=== PATIENT | male | born 1985 | race Caucasian/White ===

== ENCOUNTER 2018-12-05 16:13 | Emergency (ER) | payer SELFPAY ==
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
[2018-12-05 18:31] VITALS: BP 130/76
== END 2018-12-05 18:31 | disposition home or self-care (01) ==
LOC: ED 16:13
DX: S20.20XA Contusion of thorax, unspecified, initial encounter (principal); M54.2 Cervicalgia; V49.40XA Driver injured in collision with unspecified motor vehicles in traffic accident, initial encounter; Y92.410 Unspecified street and highway as the place of occurrence of the external cause; Z88.0 Allergy status to penicillin
CPT/HCPCS: 72050; 99281

== ENCOUNTER 2019-04-15 21:25 | Emergency (ER) | payer BC, OTHER ==
--- NOTE | 2019-04-15 21:28 | UC ---
Respiratory Complaint HPI - HPI Summary HPI Summary: 33 yo male presents with flu-like symptoms. He tells me that on 04/10 he developed fatigue, body aches, loose stools, and decreased appetite. Had loose stools 3/ and 04/12, but since resolved. Fatigue, body aches, and decreased appetite have persisted. He did not get a flu shot this year. Has not been taking anything OTC for his symptoms. He is most concerned because he has a one year old and a three year old at home and the 3 year old has started to show similar symptoms as his. He also has a mild sore throat and dry cough. Denies fever, SOB, chest pain, abdominal pain, vomiting, dysuria. Also notes a small circular itchy rash to his right calf that has been present for a few months. - History of Current Complaint Stated Complaint: URI Time Seen by Provider: 04/15/19 21:28 Hx Obtained From: Patient Onset/Duration: Sudden Onset Severity Initially: Mild Severity Currently: Mild Pain Intensity: 3 Pain Scale Used: 0-10 Numeric - Allergies/Home Medications Allergies/Adverse Reactions: Allergies Allergy/AdvReac Type Severity Reaction Status Date / Time Penicillins Allergy Hives Verified 04/15/19 21:37 Home Medications: Home Medications Clotrimazole 1% CREAM* [Clotrimazole 1%*] 1 applic TOPICAL BID #1 tube 04/15/19 [Rx] PMH/Surg Hx/FS Hx/Imm Hx - Additional Past Medical History Additional PMH: None - Surgical History Surgical History: Yes Surgery Procedure, Year, and Place: appendectomy - Family History Known Family History: Positive: None - Social History Lives: With Family Alcohol Use: None Substance Use Type: None Smoking Status (MU): Never Smoked Tobacco Have You Smoked in the Last Year: No Review of Systems All Other Systems Reviewed And Are Negative: No Constitutional: Positive: Fatigue, Other - Body aches Skin: Positive: Rash Eyes: Positive: Negative ENT: Positive: Sore Throat Respiratory: Positive: Cough Cardiovascular: Positive: Negative Gastrointestinal: Positive: Diarrhea, Nausea Neurological/Mental Status: Positive: Negative Psychological: Positive: Negative Physical Exam - Summary Physical Exam Summary: GENERAL: NAD. WDWN. No pain distress. SKIN: RIGHT CALF: 1.0cm circular area of scaly appearing lesion with hyperpigmentation. No erythema, open wound, discharge, or induration. HEENT: Head: AT/NC Eyes: EOM intact. Conjunctiva clear without inflammation or discharge. Ears: Hearing grossly normal. TMs intact, no bulging, erythema, or edema. Nose: Nasal mucosa pink and moist. NTTP maxillary and frontal sinus. Throat: Posterior oropharynx without exudates, erythema, or tonsillar enlargement. Uvula midline. NECK: Supple. Nontender. No lymphadenopathy. CHEST: CTAB. No r/r/w. No accessory muscle use. Breathing comfortably and in no distress. CV: RRR. Pulses intact. Cap refill <2seconds NEURO: Alert. PSYCH: Age appropriate behavior. Triage Information Reviewed: Yes Vital Signs: Vital Signs: Temp Pulse Resp BP Pulse Ox 98.6 F 65 18 141/87 98 04/15/19 21:32 04/15/19 21:32 04/15/19 21:32 04/15/19 21:32 04/15/19 21:32 Laboratory Tests 04/15/19 04/15/19 21:41 21:45 Influenza A (Rapid) Negative Influenza B (Rapid) Negative Group A Strep Rapid Negative Vital Signs Reviewed: Yes Respiratory Course/Dx - Course Course Of Treatment: 1) POC strep and flu negative. Suspect viral illness. He states his symptoms are improving. Discussed obtaining CXR or labwork today, but pt declined and prefers to monitor his symptoms and if they do not continue to improve will f/u with his PCP or return here. 2) Suspect tinea to right calf - rx for clotrimazole cream. - Differential Dx/Diagnosis Provider Diagnosis: Tinea, Viral illness Discharge ED - Sign-Out/Discharge Documenting (check all that apply): Patient Departure All imaging exams completed and their final reports reviewed: No Studies - Discharge Plan Condition: Stable Disposition: HOME Prescriptions: Clotrimazole 1% CREAM* [Clotrimazole 1%*] 1 applic TOPICAL BID #1 tube Patient Education Materials: Tinea Corporis (ED), Viral Syndrome (ED) Referrals: Joseph Giles MD [Primary Care Provider] - Additional Instructions: FLU AND STREP TEST NEGATIVE. YOUR EXAM WAS NORMAL TODAY AND VITAL SIGNS ARE REASSURING. Your symptoms are likely from a viral infection. Viral infections do not respond to antibiotics and are limited to the treatment of symptoms. Viral infections typically run their course in 7-10 days. Drink plenty of fluids, especially if you are running any fever. Use salt water gargles several times a day. Take over the counter acetaminophen (Tylenol) or ibuprofen (Advil, Motrin) according to directions as needed for pain or fever. You may also use Chloraseptic spray or Cepacol lonzenges according to directions which contain a numbing medication and can provide some temporary relief from a sore throat. Return here or follow up with your primary care provider in 7 days if symptoms persist. USE THE CLORTIMAZOLE CREAM FOR YOUR RINGWORM TO YOUR RIGHT CALF - Billing Disposition and Condition Condition: STABLE Disposition: Home
[2019-04-15 21:37] VITALS: BP 141/87
[2019-04-15 21:57] LABS: Influenza A Molecular Negative (Negative); Influenza B Molecular Negative (Negative)
== END 2019-04-15 22:00 | disposition home or self-care (01) ==
LOC: UCEAST 21:25
DX: B34.9 Viral infection, unspecified (principal); B35.9 Dermatophytosis, unspecified; R19.7 Diarrhea, unspecified; R11.0 Nausea; Z88.0 Allergy status to penicillin
CPT/HCPCS: 87651; 99212; G0463